=== PATIENT | female | born 1995 | race Caucasian/White ===

== ENCOUNTER → 2016-12-05 | Outpatient (CLI) | payer OTHER ==
[~2016-12-05] MED LIST: ACET-1311 PO; CALC500C3 PO; DICL1GEL12 TOP; MULT-506 PO; NORE-24 PO; OMEG10007 PO; PRLSR20 PO; TRAZ50TA35 PO
== END | disposition home or self-care (01) ==
LOC: C.RDSM 14:03
PROVIDERS: ATTEND Orthopaedic Surgery Sports Medicine
DX: M25.519 Pain in unspecified shoulder (principal)

== ENCOUNTER → 2017-07-03 | Day surgery (SDC) | payer OTHER ==
[2017-07-02 08:36] VITALS: BMI 24.0
[~2017-07-03] VITALS: Ht 167.6 cm; Wt 70.5 kg
[~2017-07-03] MED LIST changes: +FENTANYL CITRATE INJ 50 MCG/1 ML 2 ML VIAL ONE; +LIDOCAINE HCL 2% 2 ML VIAL (20MG/ML) ONE; +PROPOFOL IV EMULSION 10 MG/ML 20 ML VIAL IV ONE; +SODIUM CHLORIDE 0.9% 500ML 500 ML IV ONE
[2017-07-03 13:23] VITALS: Ht 167.6 cm; Wt 70.5 kg
--- NOTE | 2017-07-03 14:00 | Endo History and Physical ---
History & Physical Date of Service: Jul 03, 2017. Chief Complaint: NAUSEA PAIN Referring Physician: TERRY YEPEZ MD History of Present Illness 21 yo CF who presents for EGD secondary to epigastric abdominal pain and nausea. Past Surgical History Hx Cardiac Surgery: No Hx Internal Defibrillator: No Hx Pacemaker: No Hx Abdominal Surgery: No Hx of Implantable Prosthesis: No Hx Post-Op Nausea and Vomiting: No Hx Cancer Surgery: No Hx Thoracic Surgery: No Hx Orthopedic: Yes (LEFT ARM FX AND REPAIRED, RIGHT MIDDLE FINGER DOG BITE REPAIR) Hx Urinary Tract Surgery: No Family History None Social History Smoking Status: Never Smoker Hx Substance Use: No Hx Alcohol Use: No Allergies Coded Allergies: Sulfa Antibiotics (Verified Allergy, Intermediate, THROAT CLOSES, 07/03/17) Bupropion (Verified Allergy, Mild, INTENSE ANXIETY, 07/03/17) Current Medications Reported Home Medications Medications Dose Route/Sig Max Daily Dose Days Date Category [place]-3 (Fish Oil) 1 Ea Cap 1 Cap PO QAM 07/02/17 Reported Tums (Calcium Carbonate) 500 Mg Chew 1 Tab PO UD 07/02/17 Reported Multivitamin (Multivitamins) Tab 1 Tab PO QAM 07/02/17 Reported Microgestin 1.5MG/30MG (Ethinyl Estradiol/Norethindrone) Tab 1 Tab PO DAILY 07/02/17 Reported Prilosec (Omeprazole) 20 Mg Capcr 20 Mg PO BID 07/02/17 Reported Tylenol (Acetaminophen) 325 Mg Tab 650 Mg PO QID PRN 07/02/17 Reported Trazodone (Trazodone HCl) 50 Mg Tab 50 Mg PO HS 07/02/17 Reported Voltaren 1% Top Gel (Diclofenac Sodium (Topical)) 1 % Gel 1 Dose TOP DAILY PRN 07/02/17 Reported Vital Signs Weight (Kilograms): 70.45 Height (Feet): 5 Height (Inches): 6 Date Time Temp Pulse Resp B/P (MAP) Pulse Ox O2 Delivery O2 Flow Rate FiO2 07/03/17 13:27 37.1 84 16 135/75 (95) 97 Room Air Physical Exam General Appearance: WD/WN, no apparent distress Respiratory/Chest: Auscultation: breath sounds normal Cardiovascular: Heart Auscultation: RRR Abdomen: Bowel Sounds: normal Inspection & Palpation: soft, non-distended, no tenderness, guarding & rebound Assessment and Plan Assessment: 21 yo CF who presents for EGD secondary to epigastric abdominal pain and nausea. Plan: Proceed with colonoscopy.
--- NOTE | 2017-07-03 14:38 | GI REPORT ---
Procedure Date: 07/03/2017 2:16 PM Procedure: Upper GI endoscopy Indications: Epigastric abdominal pain, Nausea Medicines: Monitored Anesthesia Care Complications: No immediate complications. Estimated Blood Loss: Estimated blood loss: none. Procedure: Pre-Anesthesia Assessment: - Prior to the procedure, a History and Physical was performed, and patient medications and allergies were reviewed. The patient's tolerance of previous anesthesia was also reviewed. The risks and benefits of the procedure and the sedation options and risks were discussed with the patient. All questions were answered, and informed consent was obtained. Prior Anticoagulants: The patient has taken no previous anticoagulant or antiplatelet agents. ASA Grade Assessment: II - A patient with mild systemic disease. After reviewing the risks and benefits, the patient was deemed in satisfactory condition to undergo the procedure. After obtaining informed consent, the endoscope was passed under direct vision. Throughout the procedure, the patient's blood pressure, pulse, and oxygen saturations were monitored continuously. The scope was introduced through the mouth, and advanced to the second part of duodenum. The upper GI endoscopy was accomplished without difficulty. The patient tolerated the procedure well. Findings: The esophagus was normal. Localized mild inflammation characterized by erythema was found in the gastric antrum. Biopsies were taken with a cold forceps for histology. The examined duodenum was normal. Impression: - Normal esophagus. - Gastritis. Biopsied. - Normal examined duodenum. Recommendation: - Resume previous diet. - Continue present medications. - Await pathology results. - Return to primary care physician as previously scheduled. Cuco Dubose, DO 07/03/2017 2:37:58 PM This report has been signed electronically. Note Initiated On: 07/03/2017 2:16 PM I attest to the content of the Intraoperative Record and orders documented therein, exceptions below
--- NOTE | 2017-07-03 14:45 | Anesthesiology Progress Note ---
Anesthesia Post Op Note Date & Time Jul 03, 2017 at 14:45 Vital Signs Pain Intensity: 0 Vital Signs Past 12 Hours Date Time Temp Pulse Resp B/P (MAP) Pulse Ox O2 Delivery O2 Flow Rate FiO2 07/03/17 13:27 37.1 84 16 135/75 (95) 97 Room Air Notes Mental Status: alert / awake / arousable, participated in evaluation Pt Amnestic to Procedure: Yes Nausea / Vomiting: adequately controlled Pain: adequately controlled Airway Patency, RR, SpO2: stable & adequate BP & HR: stable & adequate Hydration State: stable & adequate Anesthetic Complications: no major complications apparent
[2017-07-03 15:01] VITALS: BP 125/90; PULSE 77; O2SAT 99
--- NOTE | 2017-07-03 15:19 | Discharge Instructions ---
Endoscopy Patient Instructions Date / Procedure(s) Performed Jul 03, 2017. EGD Allergy Information Coded Allergies: Sulfa Antibiotics (Verified Allergy, Intermediate, THROAT CLOSES, 07/03/17) Bupropion (Verified Allergy, Mild, INTENSE ANXIETY, 07/03/17) Discharge Date / Findings Jul 03, 2017. Gastritis s/p biopsies Medication Instructions OK to resume all medications today as prescribed Reported Home Medications Medications Dose Route/Sig Max Daily Dose Days Date Category [place]-3 (Fish Oil) 1 Ea Cap 1 Cap PO QAM 07/02/17 Reported Tums (Calcium Carbonate) 500 Mg Chew 1 Tab PO UD 07/02/17 Reported Multivitamin (Multivitamins) Tab 1 Tab PO QAM 07/02/17 Reported Microgestin 1.5MG/30MG (Ethinyl Estradiol/Norethindrone) Tab 1 Tab PO DAILY 07/02/17 Reported Prilosec (Omeprazole) 20 Mg Capcr 20 Mg PO BID 07/02/17 Reported Tylenol (Acetaminophen) 325 Mg Tab 650 Mg PO QID PRN 07/02/17 Reported Trazodone (Trazodone HCl) 50 Mg Tab 50 Mg PO HS 07/02/17 Reported Voltaren 1% Top Gel (Diclofenac Sodium (Topical)) 1 % Gel 1 Dose TOP DAILY PRN 07/02/17 Reported Provider Instructions Activity Restrictions - No exercising or heavy lifting for 24 hours. - Do not drink alcohol the day of the procedure. - Do not drive a car or operate machinery until the day after the procedure. - Do not make any important decisions or sign important papers in 24 hours after the procedure. Following Day: - Return to full activity which may include returning to work/school. Diet Start your diet with liquids and light foods (jello, soup, juice, toast). Then eat your usual diet if not nauseated. Treatment For Common After Affects For mild abdominal pain, bloating, or excessive gas: - Rest - Eat lightly - Lie on right side Follow-Up Information Follow-up with TERRY YEPEZ MD as scheduled Anesthesia Information What You Should Know You have had a procedure that required some medicine to reduce anxiety and discomfort. This treatment is called moderate sedation. After receiving the treatment, you may be sleepy, but you will be able to breathe on your own. The effects of the treatment may last for several hours. Follow these instructions along with Activity/Diet recommendations noted above: * Do NOT do anything where dizziness or clumsiness would be dangerous. * Rest quietly at home today, then you can be up and about tomorrow. * Have a responsible person stay with you the rest of today. * You may have had an I.V. today. If so, you may take the dressing off later today. Recommendations Call your doctor if: * Trouble breathing * Continuous vomiting for more than 24 hours * Temperature above 101 degrees * Severe abdominal pain or bloating * Pain not relieved by pain medicine ordered * There is increased drainage or redness from any incision * A large amount of rectal bleeding greater than 2-3 tablespoons. (If you had a polyp/s removed or have hemorrhoids, a small amount of blood - from the rectum is to be expected.) * You have any unanswered questions or concerns. IN THE EVENT OF A SERIOUS EMERGENCY, GO TO THE NEAREST EMERGENCY ROOM Your discharge instructions were prepared by provider Cuco Dubose. Patient Instructions Signature Page Janell Blancas Patient (or Guardian) Signature/Date: I have read and understand the instructions given to me by my caregivers. Caregiver/RN/Doctor Signature/Date: The above-named patient and/or guardian has received patient instructions on this date. + Original Patient Signature Page (only) stays with chart. Please make copy for patient.
== END | disposition home or self-care (01) ==
LOC: C.GI 12:36
PROVIDERS: ATTEND Internal Medicine
DX: K29.50 Unspecified chronic gastritis without bleeding (principal)